=== PATIENT | male | born 1935 | race Caucasian/White ===

== ENCOUNTER 2017-05-08 10:46 | Day surgery (SDC) | payer MEDICARE ==
[~2017-05-08] VITALS: Ht 177.8 cm; Wt 82.0 kg
[~2017-05-08 10:46] MED LIST: 0.9% Sodium Chloride 1,000 ML IV SCH; ALLO300T2 PO; AMLO5TAB2 PO; ASPI-973 PO; CHOL200047 PO; GLUC100016 PO; HYDR25TA4 PO; LISI-567 PO; OMEP20TA24 PO; Sodium Chloride LOK Flush 10 mL Syringe IV PRN; fentaNYL-PF 50 mCg/mL 2 mL Inj IVPUSH PRN
[2017-05-08] MEDS ORDERED: fentaNYL-PF 50 mCg/mL 2 mL Inj IVPUSH ONE (10:47)
[2017-05-08 11:54] VITALS: BP 157/92; PULSE 56; RESP 16; O2SAT 97
--- NOTE | 2017-05-08 13:38 | PCM.ENDCOL ---
Colonoscopy Date of Service: May 08, 2017 Physician Alonso Baltazar MD Pre Procedure Diagnosis: Colon polyp found during pill Endoscopy Post Procedure Dx & Findings: Polyp hemorrhoids Procedure Colonoscopy PROCEDURE IN DETAIL: Prep adequate Withdrawal time 16 minutes After unremarkable rectal examination the Olympus video colonoscope was inserted patient's anal canal and was advanced to cecum. Landmarks were identified including the ileocecal valve and appendiceal orifice. Scope was withdrawn systematically. Visualized colonic mucosa showed healthy shiny mucosa with normal healthy-appearing vasculature. In the ascending colon, there was a 1 cm polyp which is removed completely using hot snare. One resolution clip deployed. A 3 cm AVM nonbleeding noted in the ascending colon. In the rectum retroflexion was done which showed hemorrhoids. Anal canal was inspected carefully on the way out and hemorrhoids noted. Impression Polyp 1 status post complete removal AVM Hemorrhoids Recommendation Repeat colonoscopy 3 years Presedation Assessment Risks and Benefits Informed consent was obtained from the patient after all risks and benefits including but not limited to drug reaction, infection, pain, bleeding, perforation, as well as alternatives were discussed. Patient monitoring Continuous pulse oximetry, cardiac monitoring, blood pressure monitoring, IV access, and oxygen at 2L per nasal cannula. Periprocedural Fentanyl: Fentanyl 125mcg Incrementally Midazolam: Midazolam 5mg Incrementally Complications There were no periprocedural complications identified. Post Procedure Plan Post Procedure Recommendations 1. Restrict activities today. 2. Resume normal activities in the morning. 3. Resume medications. 4. Patient informed of normal post procedure side effects as bloating, drowsiness, blood streaking in the stool. 5. average risk CRCS. If colon polyps come back as: -Hyperplastic- can repeat colonoscopy in 10 years -Tubular adenoma- repeat colonoscopy in 5 years -Tubulovillous/villous adenoma- repeat colonoscopy in 3 years -If any dysplasia- return to clinic as soon as possible 6. Please don't hesitate to call me with any questions. Alonso Baltazar MD May 08, 2017 13:38
[2017-05-08 13:40] VITALS: BP 148/83; PULSE 59; RESP 12; O2SAT 99
[2017-05-08 13:52] VITALS: BP 144/77; PULSE 59; RESP 12; O2SAT 98
[2017-05-08 14:00] VITALS: BP 157/81; PULSE 57; RESP 12; O2SAT 98
--- NOTE | 2017-05-12 14:18 | PATH ---
SURGICAL PATHOLOGY Attending Physician:Alonso Baltazar M.D. CASE STATUS: Signed Out PATIENT NAME: PAULA TAPIA PID: [id number] : 1935 DATE COLLECTED:05/08/2017 00:00 SPECIMEN: Colon, Biopsy CLINICAL HISTORY: 1. CECAL POLYP X1 FINAL DIAGNOSIS: 1.CECAL POLYP: TUBULAR ADENOMA INVOLVING MULTIPLE BIOPSY FRAGMENTS. ICD10 D12.0 GROSS DESCRIPTION: The specimen is received in one formalin filled container labeled with the patient's name, sublabeled "cecal" and consists of multiple portions of tissue which aggregate to 0.5 x 0.5 x 0.3 CM. The specimen is entirely submitted in one cassette. 05/09/2017 [facility] MICRO DESCRIPTION: See diagnosis. ICD-9 CODES: CPT CODES: 1: 76139 Electronically Signed Out Hilton Krishnan MD [facility] Pathology [facility] [address], [place] [address] Technical component performed at [facility], [facility] [address], [place], [address]
== END 2017-05-08 23:59 | disposition home or self-care (01) ==
LOC: END 10:46
PROVIDERS: ATTEND Internal Medicine
DX: R10.9 Unspecified abdominal pain (principal); D12.0 Benign neoplasm of cecum; K55.20 Angiodysplasia of colon without hemorrhage; K64.9 Unspecified hemorrhoids; I25.10 Atherosclerotic heart disease of native coronary artery without angina pectoris; I10 Essential (primary) hypertension; I73.9 Peripheral vascular disease, unspecified
CPT/HCPCS: 45385; 99153; G0500; J2250; J3010; J7030